=== PATIENT | female | born 1990 | race Caucasian/White ===

== ENCOUNTER 2017-02-28 02:02 | Inpatient (IN) | payer OTHER ==
[~2017-02-28] VITALS: Ht 160 cm; Wt 58.6 kg
[2017-02-28] MEDS ORDERED: LACTATED RINGERS 1,000 ML IV SCH ×2 (02:29→04:09)
[2017-02-28] MEDS ORDERED: D5%-LACTATED RINGERS 1,000 ML IV SCH (02:29)
[2017-02-28] MEDS ORDERED: OXYTOCIN 30U/ 0.9% NaCL 500ML 500 ML IV ONE (02:29)
[2017-02-28] MEDS ORDERED: METOCLOPRAMIDE 5 MG/ML, 2ML IVPush PRN (02:30)
[2017-02-28] MEDS ORDERED: TERBUTALINE 1 MG/ML, 1ML IVPush PRN (02:30)
[2017-02-28] MEDS ORDERED: SODIUM CITRATE/CITRIC ACID 30 ML UDC PO PRN (02:30)
[2017-02-28] MEDS ORDERED: CALCIUM CARBONATE 500 MG TAB.CHEW PO PRN ×2 (02:30→08:30)
[2017-02-28] MEDS ORDERED: FENTANYL PF 100 MCG/2ML IVPush PRN (02:30)
[2017-02-28] MEDS ORDERED: ONDANSETRON 2MG/ML, 2ML IVPush PRN ×2 (02:30→04:30)
[2017-02-28] MEDS ORDERED: FENTANYL PF 100 MCG/2ML IV PRN (02:30)
[2017-02-28] MEDS ORDERED: NEWBORN KIT ONE (02:42)
[2017-02-28 02:56] LABS: HEMATOCRIT 40.4 % (34.6-47.8); HEMOGLOBIN 13.7 g/dL (11.7-16.4); WHITE BLOOD COUNT 9.2 x10^3/uL (3.4-10)
[2017-02-28] MEDS ORDERED: BUPIVACAINE 0.25% ONE ×2 (03:30→03:32)
[2017-02-28] MEDS ORDERED: FENTANYL/BUPIV./NS/PF 250 ML EPIDCONT ONE ×2 (03:30→03:32)
[2017-02-28] MEDS ORDERED: FENTANYL PF 100 MCG/2ML ONE (03:30)
[2017-02-28] MEDS ORDERED: LIDOCAINE/PF 1.5%-EPI 1:200K, 30ML ONE (03:32)
[2017-02-28] MEDS ORDERED: FENTANYL/BUPIV./NS/PF 250 ML EPIDCONT SCH (04:09)
[2017-02-28] MEDS ORDERED: LACTATED RINGERS 1,000 ML IVBOLUS PRN (04:30)
[2017-02-28] MEDS ORDERED: EPHEDRINE 50 MG/ML, 1ML IVPush PRN (04:30)
[2017-02-28] MEDS: OXYTOCIN 30U/ 0.9% NaCL 500ML 500 ML IV SCH ×2 (08:25→18:25)
[2017-02-28] MEDS ORDERED: DIPH,PERTUSS(ACELL),TET VAC/PF NC IM-VACC PRN (08:30)
[2017-02-28] MEDS ORDERED: MISOPROSTOL 200 MCG TABLET PR PRN (08:30)
[2017-02-28] MEDS ORDERED: RHOGAM FROM BLOOD BANK 1 NOTE EA IM/IV ONE (08:30)
[2017-02-28] MEDS ORDERED: BISACODYL 10 MG SUPP PR PRN (08:30)
[2017-02-28] MEDS ORDERED: CARBOPROST TROMETHAMINE 250 MCG/ML, 1ML IM PRN (08:30)
[2017-02-28] MEDS ORDERED: ONDANSETRON 2MG/ML, 2ML IV PRN (08:30)
[2017-02-28] MEDS ORDERED: MEASLES,MUMPS&RUBELLA VACC/PF 0.5 ML SQ PRN (08:30)
[2017-02-28] MEDS ORDERED: ACETAMINOPHEN 325 MG TABLET PO PRN ×2 (08:30)
[2017-02-28] MEDS ORDERED: MAGNESIUM HYDROXIDE 8%, 30ML UDC PO PRN (08:30)
[2017-02-28] MEDS ORDERED: METOCLOPRAMIDE 5 MG/ML, 2ML IV PRN (08:30)
[2017-02-28] MEDS ORDERED: GLYCERIN ADULT SUPP PR PRN (08:30)
[2017-02-28] MEDS ORDERED: METHYLERGONOVINE 0.2 MG/ML IM PRN (08:30)
[2017-02-28] MEDS ORDERED: IBUPROFEN 600 MG TABLET ONE (08:38)
[2017-02-28] MEDS: IBUPROFEN 600 MG TABLET PO PRN ×3 (08:39→21:19)
[2017-02-28] MEDS: PRENATAL VIT/IRON/FA 1 EACH TABLET PO SCH (09:00)
[2017-02-28 10:15] VITALS: BP 133/75
[2017-02-28 14:15] VITALS: BP 122/79
[2017-02-28] MEDS: DOCUSATE 100 MG CAPSULE PO PRN (14:50)
[2017-02-28] MEDS: HYDROcodone/APAP 5/325 TABLET PO PRN (15:34)
[2017-02-28] MEDS: HYDROcodone/APAP 10/325 MG TABLET PO PRN (20:14)
[2017-02-28 21:10] VITALS: BP 123/83
[2017-03-01 00:05] VITALS: BP 121/72
[2017-03-01] MEDS: HYDROcodone/APAP 10/325 MG TABLET PO PRN (02:37)
[2017-03-01] MEDS: OXYTOCIN 30U/ 0.9% NaCL 500ML 500 ML IV SCH ×2 (04:25→14:25)
[2017-03-01] MEDS: IBUPROFEN 600 MG TABLET PO PRN ×3 (04:59→18:22)
[2017-03-01 05:00] VITALS: BP 114/75
[2017-03-01 08:25] VITALS: BP 104/67
[2017-03-01] MEDS: PRENATAL VIT/IRON/FA 1 EACH TABLET PO SCH (08:25)
[2017-03-01] MEDS: DOCUSATE 100 MG CAPSULE PO PRN ×2 (08:25→22:29)
[2017-03-01] MEDS: HYDROcodone/APAP 5/325 TABLET PO PRN ×4 (08:36→22:29)
[2017-03-01 09:44] LABS: HEMATOCRIT 23.4 % (34.6-47.8); WHITE BLOOD COUNT 14.2 x10^3/uL (3.4-10)
[2017-03-01 15:07] LABS: HEMOGLOBIN 7.6 g/dL (11.7-16.4); WHITE BLOOD COUNT 13.1 x10^3/uL (3.4-10)
[2017-03-01 15:09] LABS: HEMATOCRIT 22.5 % (34.6-47.8)
[2017-03-01 16:00] VITALS: BP 132/75
[2017-03-01 19:35] VITALS: BP 111/67
[2017-03-01 20:41] LABS: HEMATOCRIT 23.9 % (34.6-47.8); HEMOGLOBIN 8.1 g/dL (11.7-16.4)
[2017-03-01 21:14] LABS: PROTIME 9.1 Seconds (9.6-11.5)
[2017-03-02] MEDS: OXYTOCIN 30U/ 0.9% NaCL 500ML 500 ML IV SCH (00:25)
[2017-03-02] MEDS: IBUPROFEN 600 MG TABLET PO PRN ×2 (00:41→07:31)
[2017-03-02] MEDS: HYDROcodone/APAP 5/325 TABLET PO PRN ×2 (02:54→11:44)
[2017-03-02] MEDS: DOCUSATE 100 MG CAPSULE PO PRN (07:31)
[2017-03-02] MEDS: PRENATAL VIT/IRON/FA 1 EACH TABLET PO SCH (07:31)
[2017-03-02] MEDS: HYDROcodone/APAP 10/325 MG TABLET PO PRN (07:35)
[2017-03-02 08:00] VITALS: BP 122/72
[2017-03-02] MEDS ORDERED: IBUP-1222 PO (08:37)
[2017-03-02] MEDS ORDERED: DOCU-131 PO (08:37)
[2017-03-02] MEDS ORDERED: HYDR-3240 PO (08:37)
[2017-03-02] MEDS ORDERED: FERR325T18 PO (08:38)
== END 2017-03-02 12:14 | disposition home or self-care (01) | DRG 775 ==
LOC: LDOP 02:02 → LDIP 02:31 → 2NW 10:23
PROVIDERS: ADMIT Student in an Organized Health Care Education/Training Program; ATTEND Student in an Organized Health Care Education/Training Program
PROC: 10E0XZZ Delivery of Products of Conception, External Approach (ICD-10-PCS; principal; 2017-02-28)
PROC: 0KQM0ZZ Repair Perineum Muscle, Open Approach (ICD-10-PCS; 2017-02-28)
PROC: 3E0S3CZ (ICD-10-PCS; 2017-02-28)
PROC: 00HU33Z Insertion of Infusion Device into Spinal Canal, Percutaneous Approach (ICD-10-PCS; 2017-02-28)
DX: O70.1 Second degree perineal laceration during delivery (principal); Z37.0 Single live birth; D62 Acute posthemorrhagic anemia; O99.02 Anemia complicating childbirth; R63.6 Underweight; Z3A.39 39 weeks gestation of pregnancy; Z83.3 Family history of diabetes mellitus; Z23 Encounter for immunization
CPT/HCPCS: 36415; 85025; 85049; 85379; 85384; 85610; 85730; 86850; 86900; 99285; J2405; J3490; J3010; J7120